=== PATIENT | male | born 1940 | race Caucasian/White ===

== ENCOUNTER → 2017-08-02 | Outpatient (CLI) | payer OTHER ==
[~2017-08-02] MED LIST: ALLO300 PO; ALPR.25 PO; ASPI81CH PO; ATOR40TA PO; BUME1 PO; CARV25 PO; Coumadin5 MG PO; ENTRESTO 24 MG1 EACH PO; Lovenox120 MG/0.8 SC; METO2.5 PO; MORP20L SL; Micro-K10 MEQ PO; TORSE20 PO
[2017-08-02 16:20] LABS: Protein, Urine Random 10.5 mg/dL (0.0-11.9)
[2017-08-02 16:29] LABS: Creatinine, Urine Random 91.7 mg/dL (27.00-270.00)
== END ==
LOC: OLS 13:34
PROVIDERS: Internal Medicine
DX: N18.3 Chronic kidney disease, stage 3 (moderate) (principal)
CPT/HCPCS: 82570; 84156

== ENCOUNTER 2017-11-09 15:24 | Emergency (ER) | payer OTHER ==
[~2017-11-09] VITALS: Ht 177.8 cm; Wt 125.2 kg
[2017-11-09 16:09] LABS: BASOPHILS ABSOLUTE AUTO 0.05 K/mm3 (0.00-0.23); BASOPHILS PERCENT AUTO 1 % (0-2); EOSINOPHILS ABSOLUTE AUTO 0.25 K/mm3 (0.00-0.68); EOSINOPHILS PERCENT AUTO 3 % (0-6); Hematocrit 43.2 % (37.0-53.0); Hemoglobin 13.7 g/dL (13.5-17.5); IMMATURE GRAN ABSOLUTE AUTO 0.03 K/mm3 (0.00-0.10); IMMATURE GRAN PERCENT AUTO 0 % (0-1); LYMPHOCYTES ABSOLUTE AUTO 1.15 K/mm3 (0.84-5.20); LYMPHOCYTES PERCENT AUTO 15 % (21-46); MONOCYTES ABSOLUTE AUTO 0.67 K/mm3 (0.16-1.47); MONOCYTES PERCENT AUTO 9 % (4-13); Mean Corpuscular HGB 30.6 pg (26.0-34.0); Mean Corpuscular HGB Conc 31.7 g/dL (31.5-36.5); Mean Corpuscular Volume 96 fL (80-100); Mean Platelet Volume 11.4 fL (9.1-12.4); NEUTROPHILS PERCENT AUTO 71 % (41-73); Platelet Count 154 K/mm3 (150-400); RDW Coefficient Variation 17.2 % (11.7-14.2); RDW Standard Deviation 60.9 fL (35.1-46.3); Red Blood Cell Count 4.48 M/mm3 (4.30-5.90); White Blood Cell Count 7.45 K/mm3 (4.00-11.30)
[2017-11-09 16:30] LABS: Albumin, Blood 3.7 g/dL (3.4-5.0); Albumin/Globulin Ratio 1.2 (0.8-1.8); Bilirubin, Total 0.4 mg/dL (0.1-1.0); Bun/Creatinine Ratio 27.2 (12.0-20.0); Calcium, Blood 8.4 mg/dL (8.5-10.1); Creatinine, Blood 1.84 mg/dL (0.60-1.20); Globulin, Blood 3.2 g/dL (2.2-4.0); Potassium, Blood 4.3 mmol/L (3.5-5.5); Total Protein, Blood 6.9 g/dL (6.4-8.2); Troponin I 0.021 ng/mL (0.000-0.040)
[2017-11-09] MEDS ORDERED: ASPI81CH PO (17:23)
[2017-11-09] MEDS ORDERED: Micro-K10 MEQ (17:23)
[2017-11-09] MEDS ORDERED: ATOR40TA PO (17:23)
[2017-11-09] MEDS ORDERED: ENTRESTO 24 MG1 EACH PO (17:24)
[2017-11-09] MEDS ORDERED: TORSE20 PO (17:24)
[2017-11-09] MEDS ORDERED: ALLO300 PO (17:24)
[2017-11-09] MEDS ORDERED: CARV25 PO (17:24)
[2017-11-09] MEDS ORDERED: Coumadin5 MG PO (18:27)
[2017-11-09] MEDS ORDERED: Lovenox120 MG/0.8 SC (18:27)
== END 2017-11-09 18:50 | disposition home or self-care (01) ==
LOC: ER 15:24
PROVIDERS: Physician Assistant
DX: I48.0 Paroxysmal atrial fibrillation (principal); I50.9 Heart failure, unspecified; N28.9 Disorder of kidney and ureter, unspecified; F17.200 Nicotine dependence, unspecified, uncomplicated; Z79.82 Long term (current) use of aspirin; Z79.01 Long term (current) use of anticoagulants; Z79.899 Other long term (current) drug therapy
CPT/HCPCS: 36415; 71046; 80053; 83880; 84484; 85025; 93005; 93010; 96372; 99283; J1650

== ENCOUNTER → 2018-10-14 | Outpatient (CLI) | payer OTHER ==
[2018-10-14 15:05] LABS: International Normalized Ratio 3.3; Prothrombin Time Results 31.4 Sec (9.7-11.5)
== END | disposition home or self-care (01) ==
LOC: LAB 14:27 → LAB SHORT 14:27
PROVIDERS: Internal Medicine Cardiovascular Disease
DX: I48.91 Unspecified atrial fibrillation (principal)
CPT/HCPCS: 85610

== ENCOUNTER → 2018-11-14 | Outpatient (CLI) | payer OTHER ==
[2018-11-14 19:07] LABS: International Normalized Ratio 1.08; Prothrombin Time Results 11.4 Sec (9.7-11.5)
== END | disposition home or self-care (01) ==
LOC: LAB SHORT 17:00 → LAB 17:00
PROVIDERS: Internal Medicine Cardiovascular Disease
DX: I48.91 Unspecified atrial fibrillation (principal)
CPT/HCPCS: 85610

== ENCOUNTER → 2018-11-25 | Outpatient (CLI) | payer OTHER ==
[2018-11-25 17:13] LABS: International Normalized Ratio 1.97; Prothrombin Time Results 19.6 Sec (9.7-11.5)
== END | disposition home or self-care (01) ==
LOC: LAB SHORT 16:29 → LAB 16:29
PROVIDERS: Internal Medicine Cardiovascular Disease
DX: I48.91 Unspecified atrial fibrillation (principal)
CPT/HCPCS: 85610

== ENCOUNTER → 2018-12-02 | Outpatient (CLI) | payer OTHER ==
[2018-12-02 16:07] LABS: International Normalized Ratio 1.43; Prothrombin Time Results 14.7 Sec (9.7-11.5)
== END | disposition home or self-care (01) ==
LOC: LAB 15:37 → LAB SHORT 15:37
PROVIDERS: Radiology Therapeutic Radiology
DX: Z79.01 Long term (current) use of anticoagulants (principal); Z51.81 Encounter for therapeutic drug level monitoring; I25.5 Ischemic cardiomyopathy; I25.10 Atherosclerotic heart disease of native coronary artery without angina pectoris
CPT/HCPCS: 85610

== ENCOUNTER → 2018-12-25 | Outpatient (CLI) | payer OTHER ==
[2018-12-25 16:02] LABS: International Normalized Ratio 1.91; Prothrombin Time Results 19.1 Sec (9.7-11.5)
== END ==
LOC: LAB SHORT 14:00 → LAB 14:00
PROVIDERS: Internal Medicine Cardiovascular Disease
DX: I48.91 Unspecified atrial fibrillation (principal)
CPT/HCPCS: 36415; 85610

== ENCOUNTER → 2019-01-07 | Outpatient (CLI) | payer OTHER ==
[2019-01-08 09:06] LABS: Prothrombin Time Results 42.9 Sec (9.7-11.5)
[2019-01-08 10:50] LABS: International Normalized Ratio 4.65
== END | disposition home or self-care (01) ==
LOC: LAB HH 08:13 → LAB SHORT 08:13
PROVIDERS: Internal Medicine Cardiovascular Disease
DX: I48.91 Unspecified atrial fibrillation (principal); I50.23 Acute on chronic systolic (congestive) heart failure
CPT/HCPCS: 85610

== ENCOUNTER → 2019-01-13 | Outpatient (CLI) | payer OTHER ==
[2019-01-13 17:44] LABS: International Normalized Ratio 3.3; Prothrombin Time Results 31.4 Sec (9.7-11.5)
== END | disposition home or self-care (01) ==
LOC: LAB 17:08 → LAB SHORT 17:08
PROVIDERS: Internal Medicine Cardiovascular Disease
DX: I48.91 Unspecified atrial fibrillation (principal)
CPT/HCPCS: 85610

== ENCOUNTER → 2019-01-20 | Outpatient (CLI) | payer OTHER ==
[2019-01-20 12:48] LABS: International Normalized Ratio 1.72; Prothrombin Time Results 17.4 Sec (9.7-11.5)
== END | disposition home or self-care (01) ==
LOC: LAB SHORT 12:26 → LAB 12:26
PROVIDERS: Internal Medicine Cardiovascular Disease
DX: I48.91 Unspecified atrial fibrillation (principal)
CPT/HCPCS: 85610

== ENCOUNTER → 2019-02-03 | Outpatient (CLI) | payer OTHER ==
[2019-02-03 14:38] LABS: International Normalized Ratio 1.76; Prothrombin Time Results 17.7 Sec (9.7-11.5)
== END | disposition home or self-care (01) ==
LOC: LAB SHORT 14:05 → LAB 14:05
PROVIDERS: Internal Medicine Cardiovascular Disease
DX: I48.91 Unspecified atrial fibrillation (principal)
CPT/HCPCS: 85610

== ENCOUNTER → 2019-02-17 | Outpatient (CLI) | payer OTHER ==
[2019-02-17 14:39] LABS: International Normalized Ratio 1.47
== END | disposition home or self-care (01) ==
LOC: LAB SHORT 13:55 → LAB 13:55
PROVIDERS: Internal Medicine Cardiovascular Disease
DX: I48.91 Unspecified atrial fibrillation (principal)
CPT/HCPCS: 85610

== ENCOUNTER → 2019-08-14 | Outpatient (CLI) | payer OTHER ==
[2019-08-14 17:35] LABS: Bilirubin, Urine Neg (Neg); Blood, Urine Neg (Neg); Glucose Qualitative, Urine Neg (Neg); Ketones, Urine Neg (Neg); Leukocyte Esterase, Urine Neg (Neg); Nitrite, Urine Neg (Neg); Protein, Urine Neg (Neg); Specific Gravity, Urine 1.015 (1.003-1.022); Urobilinogen, Urine NORM (Normal)
[2019-08-14 17:43] LABS: Color, Urine Yellow (P-Yellow)
[2019-08-14 17:44] LABS: Appearance, Urine Clear (Clear)
[2019-08-14 18:01] LABS: Creatinine, Urine Random 63.3 mg/dL (27.00-270.00); Protein, Urine Random 8.8 mg/dL (0.0-11.9)
== END | disposition home or self-care (01) ==
LOC: LAB 06:00 → LAB SHORT 06:00
PROVIDERS: Internal Medicine
DX: N18.3 Chronic kidney disease, stage 3 (moderate) (principal)
CPT/HCPCS: 81003; 82570; 84156

== ENCOUNTER 2019-08-26 17:12 | Inpatient (IN) | payer OTHER ==
[~2019-08-26] VITALS: Ht 180.3 cm; Wt 117.2 kg
[~2019-08-26 17:12] MED LIST changes: -ASPI81CH PO; +Aspirin EC81 MG PO; -BUME1 PO; +Bumetanide1 MG PO
[2019-08-26 18:04] LABS: BASOPHILS ABSOLUTE AUTO 0.04 K/mm3 (0.00-0.23); BASOPHILS PERCENT AUTO 1 % (0-2); EOSINOPHILS ABSOLUTE AUTO 0.14 K/mm3 (0.00-0.68); EOSINOPHILS PERCENT AUTO 2 % (0-6); Hematocrit 39.3 % (37.0-53.0); Hemoglobin 12.6 g/dL (13.5-17.5); IMMATURE GRAN ABSOLUTE AUTO 0.04 K/mm3 (0.00-0.10); IMMATURE GRAN PERCENT AUTO 1 % (0-1); LYMPHOCYTES ABSOLUTE AUTO 0.91 K/mm3 (0.84-5.20); LYMPHOCYTES PERCENT AUTO 13 % (21-46); MONOCYTES PERCENT AUTO 8 % (4-13); Mean Corpuscular HGB Conc 32.1 g/dL (31.5-36.5); Mean Corpuscular Volume 97 fL (80-100); Mean Platelet Volume 12.7 fL (9.1-12.4); NEUTROPHILS ABSOLUTE AUTO 5.52 K/mm3 (1.96-9.15); NEUTROPHILS PERCENT AUTO 76 % (41-73); Platelet Count 160 K/mm3 (150-400); RDW Coefficient Variation 17.7 % (11.7-14.2); RDW Standard Deviation 63.1 fL (35.1-46.3); Red Blood Cell Count 4.06 M/mm3 (4.30-5.90); White Blood Cell Count 7.25 K/mm3 (4.00-11.30)
[2019-08-26 18:20] LABS: International Normalized Ratio 1.12; Prothrombin Time Results 11.9 Sec (9.7-11.5)
[2019-08-26] MEDS ORDERED: Bumetanide1 MG PO (18:28)
[2019-08-26] MEDS ORDERED: OMEP20ER PO (18:30)
[2019-08-26] MEDS ORDERED: METO25ER PO (18:30)
[2019-08-26] MEDS ORDERED: NITR.4SL SL (18:30)
[2019-08-26] MEDS ORDERED: ELIQUIS2.5 MG PO (18:31)
[2019-08-26] MEDS ORDERED: TRAM50 PO (18:32)
[2019-08-26] MEDS ORDERED: SPIR25 PO (18:32)
[2019-08-26 18:33] LABS: Albumin, Blood 3.7 g/dL (3.4-5.0); Bilirubin, Total 0.6 mg/dL (0.1-1.0); Bun/Creatinine Ratio 40.8 (12.0-20.0); Calcium, Blood 8.1 mg/dL (8.5-10.1); Creatinine, Blood 3.14 mg/dL (0.60-1.20); Globulin, Blood 3.6 g/dL (2.2-4.0); Potassium, Blood 4.2 mmol/L (3.5-5.5); Total Protein, Blood 7.3 g/dL (6.4-8.2); Troponin I 0.034 ng/mL (0.000-0.040)
--- NOTE | 2019-08-26 21:15 | NUR ---
PT ARRIVED TO ROOM FROM ER VIA STRETCHER. TRANSFERRED SELF TO BED. NO SKIN ISSUES NOTED. LS CLEAR AND DIMINISHED. 3L O2 VIA NC IN PLACE. PT STATES HE BREATHES EASIER WHEN SITTING UPRIGHT. HOB ADJUSTED TO PT SATISFACTION. TELE PLACED. PT 100% PACED WITH PVC'S AND PAC'S. PT UNSURE OF DATE THAT DEVICE WAS PLACED, EITHER 2006 OR 2007. FAMILY AT BEDSIDE. AM MEDS WERE GIVEN TO PT AT HOME AT 1330 AND PM MEDS WERE GIVEN PRIOR TO ARRIVAL AT 1630. WHICH PROBABLY LED TO PTS HYPOTENSION AND SUBSEQUENT ADMISSION. PT DENIES PAIN. VSS. AMBULATED TO BR TO VOID USING URINAL. ASSESSMENT NOTED. SNACK PROVIDED REQUESTED. CALL LIGHT IN REACH. PT ORIENTED TO ROOM. NO MEDS DUE UNTIL AM.
[2019-08-27 04:03] LABS: Hematocrit 37.4 % (37.0-53.0); Hemoglobin 12.1 g/dL (13.5-17.5); Mean Corpuscular HGB 30.8 pg (26.0-34.0); Mean Corpuscular HGB Conc 32.4 g/dL (31.5-36.5); Mean Corpuscular Volume 95 fL (80-100); Mean Platelet Volume 12.3 fL (9.1-12.4); Platelet Count 149 K/mm3 (150-400); RDW Coefficient Variation 17.5 % (11.7-14.2); RDW Standard Deviation 60.3 fL (35.1-46.3); Red Blood Cell Count 3.93 M/mm3 (4.30-5.90); White Blood Cell Count 7.46 K/mm3 (4.00-11.30)
[2019-08-27 04:23] LABS: Albumin, Blood 3.5 g/dL (3.4-5.0); Bilirubin, Total 0.6 mg/dL (0.1-1.0); Bun/Creatinine Ratio 41.8 (12.0-20.0); Calcium, Blood 8.4 mg/dL (8.5-10.1); Creatinine, Blood 3.11 mg/dL (0.60-1.20); Globulin, Blood 3.4 g/dL (2.2-4.0); Potassium, Blood 4.1 mmol/L (3.5-5.5); Total Protein, Blood 6.9 g/dL (6.4-8.2)
--- NOTE | 2019-08-27 06:06 | NUR ---
pt rested quietly with family in rm, awake each time room entered, call light in reach, o2 via nc at 3L, saline locked, family in room, vtach runs noted during night with no symptoms will continue to monitor and treat until share bsr with day staff and pt
--- NOTE | 2019-08-27 10:23 | NUR ---
Metoprolol was held per ordered parameters for blood pressure systolic 80 mHg.
--- NOTE | 2019-08-27 10:28 | NUR ---
Pt states that he is tired this morning but denies shortness of breath or pain this morning. He is sitting on the side of the bed, dangling his feet, and leaning over the table with two pillows underneath his arms. He appears to have no dyspnea or tachypnea at rest at this time. He denies any lightheadedness/dizzyness neither at rest, nor with the activity of walking into the bathroom occasionally. HIs son and his daughter are at the bedside. Dr. Chicas is here to see him at this time. Metoprolol was held due to holding parameters presribed and the blood pressures being less than 100 mmHg systolic. MAP was noted to be 61 this morning, and noc shift RN reported to me that the MAP overnight remained at least 60 despite the lower blood pressures.
--- NOTE | 2019-08-27 12:16 | NUR ---
Echocardiogram completed.
--- NOTE | 2019-08-27 12:24 | NUR ---
The pt is lying in bed at this time, blood pressure slightly improved from earlier. Dr. Chicas was informed of the blood pressure and that the metoprolol was held this morning due to this. Pt appears tired, and is resting with his eyes closed. His son and granddaughter are at the bedside. Pt states that his breathing is doing fine, even in the recumbent position. He does not appear to be having any difficulty breathing at this time. HOB is elevated slightly at 30 degrees. Since he appears to be attempting to sleep, his oxygen was placed on since he usually wears this at home, when he is sleeping. His son seems to think that the pt also wears the oxygen at times during the day as well. spo2 93-95% on room air at rest. Oxygen was applied at this time at 3 l/min, which I am told is his home dose.
--- NOTE | 2019-08-27 12:46 | NUR ---
The pt is asking for medication for back pain relief. Dr. Chicas called, and new orders received by phone.
--- NOTE | 2019-08-27 16:53 | NUR ---
Call to Dr. Chicas regarding low blood pressure today (pt continues to deny any symptoms, either at rest or while in the chair, or going to the bathroom to void) and medications ordered. New order to d/c zaroxolyn until further notice.
--- NOTE | 2019-08-27 23:30 | NUR ---
scratch on l elbow saturated bandaid, cleaned area, alchol, abx and clean dressing, tolerated procedure well
--- NOTE | 2019-08-28 06:29 | NUR ---
a+o, hypotensive all shift, nonsimptomatic, dressing still in tact on elbow, call light in reach, saline locked, no adverse changes noted during shift, sitting up watching tv, stated that he doesn't get much sleep even at home, will continue monitor and treat until share bsr with pt and staff
[2019-08-28 09:00] LABS: BASOPHILS ABSOLUTE AUTO 0.04 K/mm3 (0.00-0.23); BASOPHILS PERCENT AUTO 1 % (0-2); EOSINOPHILS ABSOLUTE AUTO 0.21 K/mm3 (0.00-0.68); EOSINOPHILS PERCENT AUTO 3 % (0-6); Hematocrit 39.4 % (37.0-53.0); Hemoglobin 12.7 g/dL (13.5-17.5); IMMATURE GRAN ABSOLUTE AUTO 0.02 K/mm3 (0.00-0.10); IMMATURE GRAN PERCENT AUTO 0 % (0-1); LYMPHOCYTES ABSOLUTE AUTO 0.95 K/mm3 (0.84-5.20); LYMPHOCYTES PERCENT AUTO 13 % (21-46); MONOCYTES ABSOLUTE AUTO 0.49 K/mm3 (0.16-1.47); MONOCYTES PERCENT AUTO 6 % (4-13); Mean Corpuscular HGB 30.8 pg (26.0-34.0); Mean Corpuscular HGB Conc 32.2 g/dL (31.5-36.5); Mean Corpuscular Volume 96 fL (80-100); Mean Platelet Volume 12.8 fL (9.1-12.4); NEUTROPHILS ABSOLUTE AUTO 5.91 K/mm3 (1.96-9.15); NEUTROPHILS PERCENT AUTO 78 % (41-73); Platelet Count 141 K/mm3 (150-400); RDW Coefficient Variation 17.5 % (11.7-14.2); RDW Standard Deviation 60.6 fL (35.1-46.3); Red Blood Cell Count 4.12 M/mm3 (4.30-5.90); White Blood Cell Count 7.62 K/mm3 (4.00-11.30)
[2019-08-28 09:20] LABS: Bun/Creatinine Ratio 40.8 (12.0-20.0); Calcium, Blood 8.6 mg/dL (8.5-10.1); Creatinine, Blood 3.04 mg/dL (0.60-1.20); Potassium, Blood 3.8 mmol/L (3.5-5.5)
[2019-08-28] MEDS ORDERED: METO2.5 PO (14:43)
[2019-08-28] MEDS ORDERED: TOPROL XL25 MG PO (14:44)
[2019-08-28] MEDS ORDERED: POTCHL20ER PO (14:47)
[2019-08-28] MEDS ORDERED: ACET500 PO (14:49)
--- NOTE | 2019-08-28 18:15 | NUR ---
PT D/C WITH ALL BELONGINGS WITH HIM, PT EXPRESSED UNDERSTANDING OF DC TEACHING
== END 2019-08-28 18:11 | disposition home health service (06) | DRG 291 ==
LOC: ER 17:12 → PCU 19:51 → EDBEDREQSVC 21:02 → PCU 21:08
PROVIDERS: Emergency Medicine; Family Medicine; Physician Assistant; ADMIT Internal Medicine
DX: I50.43 Acute on chronic combined systolic (congestive) and diastolic (congestive) heart failure (principal); J96.21 Acute and chronic respiratory failure with hypoxia; N17.9 Acute kidney failure, unspecified; N18.4 Chronic kidney disease, stage 4 (severe); I48.20 Chronic atrial fibrillation, unspecified; I42.0 Dilated cardiomyopathy; G47.30 Sleep apnea, unspecified; I34.0 Nonrheumatic mitral (valve) insufficiency; Z66 Do not resuscitate; I95.9 Hypotension, unspecified; D63.1 Anemia in chronic kidney disease; E78.5 Hyperlipidemia, unspecified; D69.6 Thrombocytopenia, unspecified; I25.10 Atherosclerotic heart disease of native coronary artery without angina pectoris; M10.9 Gout, unspecified; Z95.5 Presence of coronary angioplasty implant and graft; Z95.0 Presence of cardiac pacemaker; Z79.01 Long term (current) use of anticoagulants; Z79.02 Long term (current) use of antithrombotics/antiplatelets; Z79.899 Other long term (current) drug therapy
CPT/HCPCS: 36415; 71046; 80048; 80053; 83880; 84484; 85025; 85027; 85610; 93005; 93010; 93306; 94761; 96374; 99285-25

== ENCOUNTER → 2019-09-03 | Outpatient (CLI) | payer OTHER ==
[~2019-09-03] MED LIST changes: +ACET500 PO; +ELIQUIS2.5 MG PO; +METO25ER PO; +NITR.4SL SL; +OMEP20ER PO; +POTCHL20ER PO; +SPIR25 PO; +TOPROL XL25 MG PO; +TRAM50 PO
[2019-09-03 13:41] LABS: BASOPHILS ABSOLUTE AUTO 0.03 K/mm3 (0.00-0.23); BASOPHILS PERCENT AUTO 1 % (0-2); EOSINOPHILS ABSOLUTE AUTO 0.19 K/mm3 (0.00-0.68); EOSINOPHILS PERCENT AUTO 3 % (0-6); Hematocrit 36.5 % (37.0-53.0); Hemoglobin 11.7 g/dL (13.5-17.5); IMMATURE GRAN ABSOLUTE AUTO 0.01 K/mm3 (0.00-0.10); IMMATURE GRAN PERCENT AUTO 0 % (0-1); LYMPHOCYTES ABSOLUTE AUTO 0.71 K/mm3 (0.84-5.20); LYMPHOCYTES PERCENT AUTO 11 % (21-46); MONOCYTES ABSOLUTE AUTO 0.67 K/mm3 (0.16-1.47); MONOCYTES PERCENT AUTO 10 % (4-13); Mean Corpuscular HGB 30.8 pg (26.0-34.0); Mean Corpuscular HGB Conc 32.1 g/dL (31.5-36.5); Mean Corpuscular Volume 96 fL (80-100); NEUTROPHILS ABSOLUTE AUTO 4.92 K/mm3 (1.96-9.15); NEUTROPHILS PERCENT AUTO 75 % (41-73); Platelet Count 108 K/mm3 (150-400); RDW Coefficient Variation 17.2 % (11.7-14.2); RDW Standard Deviation 61.3 fL (35.1-46.3); White Blood Cell Count 6.53 K/mm3 (4.00-11.30)
[2019-09-03 13:43] LABS: Mean Platelet Volume 13.4 fL (9.1-12.4)
[2019-09-03 14:28] LABS: Albumin, Blood 3.6 g/dL (3.4-5.0); Albumin/Globulin Ratio 1.2 (0.8-1.8); Bilirubin, Total 0.5 mg/dL (0.1-1.0); Bun/Creatinine Ratio 41.7 (12.0-20.0); Calcium, Blood 8.2 mg/dL (8.5-10.1); Creatinine, Blood 3.21 mg/dL (0.60-1.20); Globulin, Blood 2.9 g/dL (2.2-4.0); Potassium, Blood 4.2 mmol/L (3.5-5.5); Total Protein, Blood 6.5 g/dL (6.4-8.2)
== END | disposition home or self-care (01) ==
LOC: LAB 13:16 → LAB SHORT 13:16
PROVIDERS: Family Medicine
DX: I50.23 Acute on chronic systolic (congestive) heart failure (principal)
CPT/HCPCS: 80053; 85025

== ENCOUNTER 2019-10-05 22:46 | Observation (INO) | payer OTHER ==
[~2019-10-05] VITALS: Ht 182.9 cm; Wt 108.9 kg
[2019-10-05 23:30] LABS: BASOPHILS ABSOLUTE AUTO 0.03 K/mm3 (0.00-0.23); BASOPHILS PERCENT AUTO 0 % (0-2); EOSINOPHILS ABSOLUTE AUTO 0.07 K/mm3 (0.00-0.68); EOSINOPHILS PERCENT AUTO 1 % (0-6); Hematocrit 42.3 % (37.0-53.0); Hemoglobin 13.4 g/dL (13.5-17.5); IMMATURE GRAN ABSOLUTE AUTO 0.08 K/mm3 (0.00-0.10); IMMATURE GRAN PERCENT AUTO 1 % (0-1); LYMPHOCYTES ABSOLUTE AUTO 0.98 K/mm3 (0.84-5.20); LYMPHOCYTES PERCENT AUTO 8 % (21-46); MONOCYTES ABSOLUTE AUTO 1.04 K/mm3 (0.16-1.47); MONOCYTES PERCENT AUTO 8 % (4-13); Mean Corpuscular HGB 30.8 pg (26.0-34.0); Mean Corpuscular HGB Conc 31.7 g/dL (31.5-36.5); Mean Corpuscular Volume 97 fL (80-100); NEUTROPHILS ABSOLUTE AUTO 10.88 K/mm3 (1.96-9.15); NEUTROPHILS PERCENT AUTO 83 % (41-73); Platelet Count 114 K/mm3 (150-400); RDW Coefficient Variation 17.5 % (11.7-14.2); RDW Standard Deviation 62.9 fL (35.1-46.3); Red Blood Cell Count 4.35 M/mm3 (4.30-5.90); White Blood Cell Count 13.08 K/mm3 (4.00-11.30)
[2019-10-05 23:32] LABS: Mean Platelet Volume 13.7 fL (9.1-12.4)
[2019-10-05 23:56] LABS: Albumin, Blood 3.9 g/dL (3.4-5.0); Albumin/Globulin Ratio 0.9 (0.8-1.8); Bilirubin, Total 1.1 mg/dL (0.1-1.0); Bun/Creatinine Ratio 31.3 (12.0-20.0); Calcium, Blood 9.3 mg/dL (8.5-10.1); Creatinine, Blood 3.51 mg/dL (0.60-1.20); Globulin, Blood 4.3 g/dL (2.2-4.0); Magnesium, Blood 2.2 mg/dL (1.6-2.4); Potassium, Blood 4.6 mmol/L (3.5-5.5); Total Protein, Blood 8.2 g/dL (6.4-8.2); Troponin I 0.087 ng/mL (0.000-0.040)
[2019-10-06 00:33] LABS: Source, Urine Clean Catch
[2019-10-06 00:35] LABS: Bilirubin, Urine Neg (Neg); Blood, Urine Neg (Neg); Glucose Qualitative, Urine Neg (Neg); Ketones, Urine Neg (Neg); Leukocyte Esterase, Urine Neg (Neg); Nitrite, Urine Neg (Neg); Protein, Urine 1+ (Neg); Urobilinogen, Urine NORM (Normal)
[2019-10-06 00:41] LABS: Appearance, Urine Clear (Clear); Color, Urine Yellow (P-Yellow)
[2019-10-06 02:49] LABS: Adenovirus Not Detected (NOT DETECT); Bordetella pertussis Not Detected (NOT DETECT); Chlamydophila pneumoniae Not Detected (NOT DETECT); Coronavirus 229E Not Detected (NOT DETECT); Coronavirus HKU1 Not Detected (NOT DETECT); Coronavirus NL63 Not Detected (NOT DETECT); Coronavirus OC43 Not Detected (NOT DETECT); Human Metapneumovirus Not Detected (NOT DETECT); Human Rhinovirus/Enterovirus Not Detected (NOT DETECT); Influenza A/2009-H1 Not Detected (NOT DETECT); Influenza A/H1 Not Detected (NOT DETECT); Influenza A/H3 Not Detected (NOT DETECT); Influenza B Not Detected (NOT DETECT); Mycoplasma pneumoniae Not Detected (NOT DETECT); Parainfluenza Virus 1 Not Detected (NOT DETECT); Parainfluenza Virus 2 Not Detected (NOT DETECT); Parainfluenza Virus 3 Not Detected (NOT DETECT); Parainfluenza Virus 4 Not Detected (NOT DETECT); Respiratory Syncytial Virus Not Detected (NOT DETECT)
--- NOTE | 2019-10-06 05:06 | NUR ---
79 YR OLD MALE ADMITTED TO FLOOR FROM THE ED EARLIER WITH DX OF ACUTE EXACERBATION OF CHRONIC CHF. SOB - POSSIBLE PNEUMONIA AND PLACED ON DROPLET PRECAUTIONS ED RN STATED PT TESTED FOR CARONAVIRUS AND WAITING FOR RESULTS. ORIENTED TO CALL LIGHT AND CALL LIGHT IN REACH. WEAK LOWER EXT, AGREED NOT TO GET OUT OF BED WITHOUT USING THE CALL LIGHT. C/O HEART BURN EARLIER, ASSISTED UP AND DISCOMFORT WENT AWAY. NO C/O AT THIS TIME.
[2019-10-06 09:00] LABS: BASOPHILS ABSOLUTE AUTO 0.02 K/mm3 (0.00-0.23); BASOPHILS PERCENT AUTO 0 % (0-2); EOSINOPHILS PERCENT AUTO 0 % (0-6); Hematocrit 38.7 % (37.0-53.0); Hemoglobin 12.3 g/dL (13.5-17.5); IMMATURE GRAN ABSOLUTE AUTO 0.04 K/mm3 (0.00-0.10); IMMATURE GRAN PERCENT AUTO 0 % (0-1); LYMPHOCYTES ABSOLUTE AUTO 0.71 K/mm3 (0.84-5.20); LYMPHOCYTES PERCENT AUTO 7 % (21-46); MONOCYTES ABSOLUTE AUTO 0.82 K/mm3 (0.16-1.47); MONOCYTES PERCENT AUTO 8 % (4-13); Mean Corpuscular HGB 30.7 pg (26.0-34.0); Mean Corpuscular HGB Conc 31.8 g/dL (31.5-36.5); Mean Corpuscular Volume 97 fL (80-100); NEUTROPHILS ABSOLUTE AUTO 8.53 K/mm3 (1.96-9.15); NEUTROPHILS PERCENT AUTO 84 % (41-73); Platelet Count 101 K/mm3 (150-400); RDW Coefficient Variation 17.5 % (11.7-14.2); RDW Standard Deviation 61.8 fL (35.1-46.3); Red Blood Cell Count 4.01 M/mm3 (4.30-5.90); White Blood Cell Count 10.12 K/mm3 (4.00-11.30)
[2019-10-06 09:07] LABS: Mean Platelet Volume 13.9 fL (9.1-12.4)
[2019-10-06 09:16] LABS: Bun/Creatinine Ratio 29.5 (12.0-20.0); Calcium, Blood 9.3 mg/dL (8.5-10.1); Creatinine, Blood 3.86 mg/dL (0.60-1.20); Potassium, Blood 4.4 mmol/L (3.5-5.5)
--- NOTE | 2019-10-06 11:50 | NUR ---
[facility]IAL [facility] CARE VISIT - PT KNOWN TO ME FROM 2018 WHEN HE MADE A DECISION TO BE A DNR AND GO HOME WITH HOSPICE AND FAMILY SUPPORT. Pt has long standing PMH of ES CHF with an EF of 10-15% and CKD. He has home O2 for night time use but is not compliant in using it or any other medical treatments consistently per family member who has been involved in his care watermaster. Pt is lying in bed, sleeping with hob elev. He did not wake to voice but woke to touch. He has approx 4-5 blankets piled on and says he just got them and is not too warm. He has a flat affect but is agreeable to my visit. Discussed how he has done over past 16 months since I saw him last. Pt did very well with regular assessment, s/s amd medication management per Hospice for 6-8 months. He did well enough that he opted to discontinue hospice. In recent weeks his s/s and ability to manage care independently at home have declined. Per family, he frequently gets angry at family caregivers or any hired cg and "throws them out". He has two sons and two [id number] locally who have attempted regular assist but have been dismissed by pt. When he gets into trouble with his health or s/s he calls and does expect them to jump in and rescue.Family members are setting healthy boundaries and limits at this time. They are expressing caregiver fatigue/exhaustion at a rapid rate due to his behaviours and demands. Support offered and encouragement given to DIL to continue healthy boundaries and self care. Pt states he "might" consider accepting hospice services or hiring CG again when he leaves the hospital. He said he needed time to consider these options. Pt is currently in isolation for ruling out covid19. While I was in the room I did not observe any coughing or respiratory s/s. Pt reports feeling much better than he did when he called his osmel in law to transport him to the hospital. He had abdominal pain, nausea, emesis in past days, leading up to call for help. T/c to pt's RN and KATTY Oneal with report on my visit with DIL and my visit with pt this am. Planned with pt to return tomorrow for f/u on goals/plans of care per his wishes.
--- NOTE | 2019-10-06 16:06 | NUR ---
HYPOTENSION PT BP THIS AFTERNOON IS 73/44. DR. MICHELE NOTIFIED. ORDERED TO HOLD EVENING DOSE OF BUMEX.
--- NOTE | 2019-10-06 17:51 | NUR ---
SHIFT SUMMARY PT HYPOTENSIVE. DR. MICHELE AWARE. EVENING BUMEX HELD. WAITING COVID19 RULE OUT RESULTS. PT & FAMILY DISCUSSING POSSIBILITY OF HOSPICE RELATED TO CHRONIC ILLNESSES. DECISION YET TO BE MADE. NO OTHER ACUTE CHANGES IN ASSESSMENT AT THIS TIME.
--- NOTE | 2019-10-06 19:58 | NUR ---
1957-PRECIOUS WAS SITTING UP IN BED, WATCHING TV. NOT VERY TALKATIVE OR WANTING TO HOLD CONVERSATION. STATES HE JUST WANTS TO GET SOME SLEEP TONIGHT. DENIES CHEST PAIN, SOB, OR DISCOMFORT. LUNG SOUNDS ARE DIMINISHED THROUGHOUT, COUGH IS OCCATIONAL NON-PRODUCTIVE. MILD EDEMA IN BLE. ENCOURAGE TO CALL WHEN HE VOIDS HE HAS NOT GONE TO THE BATHROOM FOR SEVERAL HOURS PER DAY SHIFT. HE STATES HE DOES NOT GO THAT OFTEN. ENCOURAGED FLUID INTAKE. HOOKED HIM UP TO IV ANTIBOTIC AND GAVE HIM HIS MEDS. HE DENIED ANY OTHER NEEDS AT THIS TIME. CALL LIGHT IN REACH.
[2019-10-07 05:12] LABS: BASOPHILS ABSOLUTE AUTO 0.02 K/mm3 (0.00-0.23); BASOPHILS PERCENT AUTO 0 % (0-2); EOSINOPHILS ABSOLUTE AUTO 0.18 K/mm3 (0.00-0.68); EOSINOPHILS PERCENT AUTO 2 % (0-6); Hematocrit 34.7 % (37.0-53.0); Hemoglobin 11.1 g/dL (13.5-17.5); IMMATURE GRAN ABSOLUTE AUTO 0.03 K/mm3 (0.00-0.10); IMMATURE GRAN PERCENT AUTO 0 % (0-1); LYMPHOCYTES ABSOLUTE AUTO 0.93 K/mm3 (0.84-5.20); LYMPHOCYTES PERCENT AUTO 12 % (21-46); MONOCYTES ABSOLUTE AUTO 0.67 K/mm3 (0.16-1.47); MONOCYTES PERCENT AUTO 9 % (4-13); Mean Corpuscular HGB 31.4 pg (26.0-34.0); Mean Corpuscular Volume 98 fL (80-100); NEUTROPHILS PERCENT AUTO 76 % (41-73); Platelet Count 89 K/mm3 (150-400); RDW Coefficient Variation 17.3 % (11.7-14.2); RDW Standard Deviation 62.6 fL (35.1-46.3); Red Blood Cell Count 3.54 M/mm3 (4.30-5.90); White Blood Cell Count 7.73 K/mm3 (4.00-11.30)
[2019-10-07 05:32] LABS: Mean Platelet Volume 13.4 fL (9.1-12.4)
[2019-10-07 05:33] LABS: Albumin, Blood 3.3 g/dL (3.4-5.0); Albumin/Globulin Ratio 0.9 (0.8-1.8); Bilirubin, Total 0.6 mg/dL (0.1-1.0); Calcium, Blood 8.7 mg/dL (8.5-10.1); Creatinine, Blood 4.74 mg/dL (0.60-1.20); Globulin, Blood 3.6 g/dL (2.2-4.0); Magnesium, Blood 2.4 mg/dL (1.6-2.4); Phosphorus, Blood 6.1 mg/dL (2.5-4.9); Potassium, Blood 5.1 mmol/L (3.5-5.5); Total Protein, Blood 6.9 g/dL (6.4-8.2)
--- NOTE | 2019-10-07 05:47 | NUR ---
SHIFT SUMMARY: PRECIOUS HAS BEEN COOPERATIVE IN HIS CARE. HE HAS BEEN UP AND DOWN TO THE SIDE OF THE BED NUMEROUS TIMES. WHEN ASKED WHAT IS WRONG HE STATES HE IS FINE. OFFERED TO ASSIST IN POSITIONING TO HELP COMFORTABLITY BUT HE REFUSED. DENIED PAIN OR DISCOMFORT. DENIED ANY SOB. HE GOT ESTIMATED 2 HOURS OF SLEEP THIS SHIFT. VS HAVE BEEN HYPOTENSIVE, AFEBRILE. DENIED DIZZINESS. HE WAS ABLE TO VOID ONLY SMALL AMOUNT OF URINE, THAT WAS VERY DARK. ENCOURAGED INCREASE OF FLUIDS. HE REMAINED QUITE AND DID NOT ASK FOR MUCH FOR HIMSELF. CALL LIGHT STAYED IN REACH. NO ACUTE CHANGES THIS SHIFT.
--- NOTE | 2019-10-07 08:30 | NUR ---
HYPOTENSION DR. MICHELE NOTIFIED OF PT BP 83/53 AND HR OF 81 THIS AM. ORDERED TO HOLD ENTRESTO, ARDEN POTASSIUM & SPIROLACTONE, AND CALL CONSULTS FOR CARDIOLOGY AND NEPHROLOGY.
--- NOTE | 2019-10-07 10:49 | NUR ---
[facility] Care visit after case conference with susan RN and Dr Narayan. Case conferenced with SUSAN and Dr Tripp after my visit with Hermelindo. Inventory Analyst has confirmed with pt that he does not want any form of resuscitation including shocks and discussed turning his implanted defibrillator off before leaving the hospital. When I entered the room, pt is awake and watching TV. He has a flat affect but answers when spoken to. With his permission I sat down and muted the volume for the TV. We discussed hospice, how they were helpful in the past, his heart and kidney failure and trajectory, anticipaiton of good days with s/s well managed & some bad days to come, where assist from family/caregivers would be needed. Pt agrees that he would like to have hospice visits when he leaves. He says he'd be willing to interview caregivers at home. Pt is discharged home today. He wants to speak with his DIL further re: his implanted defibrillator & turning it off. Pt is sl dyspnic with conversation. He denies pain. He appears depressed. He does not appear anxious except when discussing his defibrillator. He is answering in short sentences. Call to EFM and SUSAN after my visit for report on my visit and pt's acceptance of hospice on d/c today. SUSAN requests [facility] and has already spoken to Medical Affairs Leader re: choice of hospice agency. He is considering the question of whether to turn of his defibrilator
[2019-10-07] MEDS ORDERED: AZIT250 PO (11:11)
[2019-10-07 11:44] LABS: Test Name COVID-19
--- NOTE | 2019-10-07 12:29 | NUR ---
PT HAS NOT VOIDED THIS SHIFT. STATES HE DOES NOT FEEL HE URGE. BLADDER SCANNED AT 1200, 63CC SCANNED. PT TOOK OFF O2 AND STATES HE DOES NOT WANT IT ON RIGHT NOW. DR. MICHELE NOTIFIED. VITALS SIGNS CHANGED TO ONCE A SHIFT.
--- NOTE | 2019-10-07 14:20 | NUR ---
PT'S ABIVICD THERAPIES TURNED "OFF" PER DR PANTOJA.
--- NOTE | 2019-10-07 17:18 | NUR ---
PT DISCHARGED PT DISCHARGED HOME ON HOSPICE. PT SHOWERED PRIOR TO DC. NEW DRESSING PLACED TO BUTTOCKS. PT & FAMILY GIVEN DC INSTRUCTIONS AND DENIED QUESTIONS. IVS REMOVED & INTACT. PT WHEELED OUT BY AIDE AND DRIVEN HOME BY FAMILY.
== END 2019-10-07 17:18 | disposition home or self-care (01) ==
LOC: ER 22:46 → MEDS 10-06 02:15 → ER 10-06 02:15 → MEDS 10-06 02:53 → ENPENDDIS 10-07 09:48 → MEDS 10-07 16:28
PROVIDERS: Emergency Medicine; Hospitalist; ADMIT Internal Medicine
DX: I13.10 Hypertensive heart and chronic kidney disease without heart failure, with stage 1 through stage 4 chronic kidney disease, or unspecified chronic kidney disease (principal); I50.23 Acute on chronic systolic (congestive) heart failure; I50.32 Chronic diastolic (congestive) heart failure; I50.84 End stage heart failure; N18.4 Chronic kidney disease, stage 4 (severe); D63.1 Anemia in chronic kidney disease; J96.21 Acute and chronic respiratory failure with hypoxia; N17.9 Acute kidney failure, unspecified; D69.6 Thrombocytopenia, unspecified; R59.0 Localized enlarged lymph nodes; R79.89 Other specified abnormal findings of blood chemistry; D72.829 Elevated white blood cell count, unspecified; I42.0 Dilated cardiomyopathy; I34.0 Nonrheumatic mitral (valve) insufficiency; I48.20 Chronic atrial fibrillation, unspecified; I48.0 Paroxysmal atrial fibrillation; I25.10 Atherosclerotic heart disease of native coronary artery without angina pectoris; E78.5 Hyperlipidemia, unspecified; G47.33 Obstructive sleep apnea (adult) (pediatric); E66.9 Obesity, unspecified; Z79.01 Long term (current) use of anticoagulants; Z79.899 Other long term (current) drug therapy; Z95.5 Presence of coronary angioplasty implant and graft; Z87.891 Personal history of nicotine dependence; Z68.32 Body mass index [BMI] 32.0-32.9, adult
CPT/HCPCS: 0099U; 36415; 71045; 71250; 80048; 80053; 83690; 83735; 83880; 84100; 84145; 84484; 85025; 93005; 93010; 93283; 96365; 96367; 99285-25; A9270; J0456; J0696; J3370; J7050; U0001